=== PATIENT | female | born 1995 | race Caucasian/White ===

== ENCOUNTER 2017-06-01 02:15 | Emergency (ER) | payer OTHER ==
[~2017-06-01] VITALS: Ht 165.1 cm; Wt 73.0 kg
[~2017-06-01 02:15] MED LIST: IBUP600T26 PO; ROBA750T3 PO
[2017-06-01 02:18] VITALS: BP 153/98; PULSE 100; RESP 16; TEMP 98.8; O2SAT 99
[2017-06-01 03:08] VITALS: BP 123/86; PULSE 98; RESP 18; O2SAT 95
[2017-06-01] MEDS ORDERED: ALBUAER3 INH (03:08)
--- NOTE | 2017-06-01 04:12 | PD ---
HPI Chief Complaint: Respiratory Symptoms Time Seen by Provider: 03:18 Travel History International Travel<30 days: No Contact w/Intl Traveler<30days: No Traveled to known affect area: No History of Present Illness HPI The patient is a 21 year old female who presents to the [facility] emergency department with a history of developing shortness of breath, palpitations, nausea, dizziness that began at 11 PM tonight. The patient reports that she does have a history of seasonal asthma. She reports that she last used her pro-air inhaler 8:30 PM. She was concerned about using it again as she sometimes gets palpitations or an increased heart rate with using it. The patient reports that she did have one episode of vomiting prior to arrival. The patient reports that the only new medication that she's recently been on as a supplement called BPI pre-workout. She did take this supplement at approximate 7 PM this evening. According to the active ingredients of this medication and is a supplement that contains caffeine. She denies having any lower extremity edema, calf pain, or erythema. She denies having any personal or family history of blood clots. On review of systems, she denies any recent fevers or congestion, however she reports that she has had a dry cough this evening. She denies having any neck pain, chest pain, abdominal pain, diarrhea , urinary symptoms, or neurologic symptoms. The patient reports that she occasionally smokes cigarettes. She is currently in the area for school. Her primary care physician is in [place], [place]. LMP: 3 years ago due to a Mirena IUD. PFS Past Medical History Narrative Medical The patient's past medical history is significant for seasonal related reactive airway/asthma. Asthma: Yes Diminished Hearing: No Influenza Vaccination: Yes ?: Unknown Past Surgical History Narrative Surgical The patient's past surgical history is reportedly none. Social History Alcohol Use: Yes (OCCASIONALLY) Tobacco Use: Yes (OCCASIONALLY) Substance Use: No Allergies-Medications (Allergen,Severity, Reaction): Coded Allergies: No Known Allergies (Unverified , 11/27/15) Reported Meds & Prescriptions Reported Meds & Active Scripts Active Zofran Odt (Ondansetron Odt) 4 Mg Tab 4 Mg SL Q6HR PRN Reported Proair Hfa 8.5 GM Inh (Albuterol Sulfate) 90 Mcg/Act Aer 2 Puff INH 108 mcg/actuation Narrative Medication bpi preworkout Review of Systems Except as stated in HPI: all other systems reviewed are Neg General / Constitutional: No: Fever Eyes: No: Visual changes HENT: No: Headaches Cardiovascular: Positive: Palpitations, No: Chest Pain or Discomfort Respiratory: No: Shortness of Breath Gastrointestinal: Positive: Nausea, Vomiting, No: Diarrhea, Abdominal Pain, Hematemesis, Hematochezia, Indigestion, Loss of Appetite Genitourinary: No: Dysuria Musculoskeletal: No: Pain Skin: No Rash Neurologic: No: Weakness, Focal Abnormalities, Change in Mentation, Slurred Speech, Sensory Disturbance Psychiatric: No: Depression Endocrine: No: Polydipsia Hematologic/Lymphatic: No: Easy Bruising Physical Exam Narrative General: The patient is a well-developed well-nourished female in no acute distress. Head and Neck exam: Head is normocephalic atraumatic. Eyes: EOMI, pupils are equal round and reactive to light. Nose: Midline septum with pink mucous membranes Mouth: Dentition unremarkable. Moist mucus membranes. Posterior oropharynx is not erythematous. No tonsillar hypertrophy. Uvula midline. Airway patent. Neck: No palpable lymphadenopathy. No nuchal rigidity. No thyromegaly. Cardiovascular: Regular rate and rhythm without murmurs, gallops, or rubs. No pulse deficit to the extremities and simultaneous auscultation and palpation of her radial artery. Lungs: Decreased air movement bilateral bases. No rhonchi, wheezes, or crackles are audible. The patient has no accessory muscle use noted. No tripoding. No nasal flaring. Abdomen: Soft, without tenderness to palpation in all 4 quadrants of the abdomen. No guarding, rebound, or rigidity. Normal bowel sounds are audible. No tenderness on palpation of McBurney's point. Negative Aurora sign. Extremities: No clubbing, cyanosis, or edema. 2+ pulses in all 4 extremities. No calf tenderness on palpation. Back: No costovertebral angle tenderness to palpation. Neurologic Exam: Grossly nonfocal. Skin Exam: No rash noted. Intact skin that is warm and dry. Data Data Last Documented VS Vital Signs Date Time Temp Pulse Resp B/P Pulse Ox O2 Delivery O2 Flow Rate FiO2 06/01/17 03:08 98 18 123/86 95 Room Air 06/01/17 02:18 98.8 Orders Chest, Pa & Lat (06/01/17 04:15) Ed Urine Pregnancytest Poc (06/01/17 04:15) Albuterol-Ipratropium Neb (Duoneb Neb) (06/01/17 04:15) [facility] Medical Decision Making Medical Screen Exam Complete: Yes Emergency Medical Condition: Yes Medical Record Reviewed: Yes Interpretation(s) Last Impressions Chest X-Ray 06/01/17 0415 Signed Impressions: Service Date/Time: Thursday, June 01, 2017 04:47 - CONCLUSION: The lungs are clear. Sukhjinder Dia MD Differential Diagnosis Pneumothorax, versus asthma exacerbation, versus supplement side effect, versus allergy-induced asthma Narrative Course During the course of the patients emergency department visit, the patients history, examination, and differential diagnosis were reviewed with the patient. The patient was placed on a vehicle monitor technician with oximetry and blood pressure monitoring. A chest x-ray was ordered. The patient had a DuoNeb administered 1. Radiology studies were reviewed and remarkable for a chest x-ray that showed no acute cardiopulmonary disease. On reexamination, the patient has increased air movement noted. The patient was instructed to use her pro-air inhaler as needed for shortness of breath. The patient is instructed to follow-up with a local incubator operator that she has not been seen by one in the past and has not had pulmonary function testing done previously. The patient is instructed to avoid [id number] weight loss/workout supplements as they can induced palpitations. The patient will be discharged home with a prescription for nausea medication. The patient is resting comfortably and feels better, is alert and in no distress. The patients results and examination findings were discussed with the patient. The repeat examination is unremarkable and benign. The history, exam, diagnostic testing, and current condition do not suggest any significant pathology to warrant further testing, continued ED treatment, admission, or surgical evaluation at this point. The vital signs have been stable. The patient does not have uncontrollable pain, intractable vomiting, or other significant symptoms. The patient's condition is stable and appropriate for discharge. The patient will pursue further outpatient evaluation with a primary care physician or other designated or consulting physician as indicated in the discharge instructions. The patient expressed understanding and was agreeable with this plan. Diagnosis Primary Impression: Reactive airway disease with wheezing Qualified Code: J45.20 - Mild intermittent reactive airway disease with wheezing without complication Additional Impression: Medication side effect Qualified Code: T88.7XXA - Adverse effect of drug, initial encounter Referrals: Faisal Cherry MD 1 week Patient Instructions: General Instructions, Reactive Airways Disease (ED) Additional Instructions: Avoid smoking. The patient is instructed to avoid workout supplements with caffeine as they can induce palpitations Med/Other Pt SpecificInfo: Prescription(s) given Scripts Ondansetron Odt (Zofran Odt)4 Mg Tab4 Mg SL Q6HR PRN (Nausea/Vomiting) #7 TAB Ref 0 Prov:Chana Phillips MD 06/01/17 Disposition: 01 DISCHARGE HOME Condition: Stable Chana Phillips MD Jun 01, 2017 04:12
[2017-06-01] MEDS ORDERED: RESP: ALBUTEROL 2.5 MG/IPRATROPIUM 0.5 MG NEB (SCH) NEB ONE (04:15)
[2017-06-01] MEDS ORDERED: ZOFR4TAB3 SL (04:39)
--- NOTE | 2017-06-01 05:20 | RADRPT ---
EXAM DATE/TIME: 06/01/2017 04:47 [facility] COMPARISON: No previous studies available for comparison. INDICATIONS : Chest pain. MEDICAL HISTORY : None. SURGICAL HISTORY : None. ENCOUNTER: Initial ACUITY: 1 day PAIN SCORE: 0/10 LOCATION: Bilateral chest FINDINGS: PA and lateral views of the chest demonstrate the lungs to be symmetrically aerated without evidence of mass, infiltrate or effusion. The cardiomediastinal contours are unremarkable. Osseous structure s are intact. CONCLUSION: The lungs are clear. Sukhjinder Dia MD on June 01, 2017 at 5:18 Board Certified Radiologist. This report was verified electronically.
== END 2017-06-01 05:26 | disposition home or self-care (01) ==
LOC: NEPC 02:15
DX: J45.20 Mild intermittent asthma, uncomplicated (principal); T88.7XXA Unspecified adverse effect of drug or medicament, initial encounter
CPT/HCPCS: 71020; 84703; 94664; 99284